=== PATIENT | female | born 1995 | race Hispanic/Latino ===

== ENCOUNTER 2017-09-17 13:20 | Emergency (ER) | payer OTHER ==
[2017-09-17 13:43] LABS: Bilirubin Small (Negative); Blood, Urine Moderate (Negative); Glucose, Urine (Dipstick) Negative (Negative); Leukocyte Negative (Negative); Nitrite Negative (Negative); Protein, Urine (Dipstick) 30 mg/dL (Neg-Trace); Specific Gravity, Urine 1.025 (1.005-1.030); Urobilinogen 0.2 mg/dL (0.2-1.0)
[2017-09-17 13:51] LABS: Clarity Hazy (Clear)
[2017-09-17 13:52] LABS: Pregnancy Test - Urine (BHCG) Negative (Negative); Pregu Control Background? CLEAR/WHITE (CLR/WHITE); Pregu Control Bar Appear? YES (CONTROL BAR); Specific Gravity 1.025 (1.002-1.036)
[2017-09-17 13:55] LABS: Bacteria/HPF 3+ HPF (None Seen); WBC/HPF 0-3 HPF (0-3)
--- NOTE | 2017-09-17 14:16 | RAD ---
CHEST 2 VIEWS: Date: 09/17/17 HISTORY: Chest pain. COMPARISON: None. FINDINGS: Lungs are clear. No pneumothorax or effusion. Cardiac silhouette and mediastinal contour is within no rmal limits. IMPRESSION: No acute intrathoracic abnormality. POS: [facility]OH
== END 2017-09-17 14:30 | disposition home or self-care (01) ==
LOC: SCSER 13:20
DX: R07.89 Other chest pain (principal); Z79.899 Other long term (current) drug therapy
CPT/HCPCS: 71046; 81003; 81015; 81025